=== PATIENT | female | born 1980 | race Caucasian/White ===

== ENCOUNTER 2016-05-11 13:11 | Emergency (ER) | payer SELFPAY ==
[~2016-05-11 13:11] MED LIST: BACTRONASA NAS; KLONO2 PO; LEXAPRO20 PO; MEDROL; NEUR600 PO; NORCO1 TA1 PO; OXYCONTIN15 MG PO; PERCOCET PO; V5 PO; ZANAFLEX 4 MG TA4 MG PO
== END 2016-05-11 15:47 | disposition home or self-care (01) ==
LOC: ER 13:11
DX: M54.2 Cervicalgia (principal); F17.200 Nicotine dependence, unspecified, uncomplicated; Z88.6 Allergy status to analgesic agent; Z79.899 Other long term (current) drug therapy
CPT/HCPCS: 96372; 99284